=== PATIENT | female | born 2000 | race Caucasian/White ===

== ENCOUNTER → 2019-01-08 | Outpatient (CLI) | payer OTHER | LOC: MC.RAD 13:37 | DX: N63.23 Unspecified lump in the left breast, lower outer quadrant (principal) ==

== ENCOUNTER → 2019-01-09 | Outpatient (CLI) | payer OTHER | LOC: MC.RAD 08:27 | DX: N63.20 Unspecified lump in the left breast, unspecified quadrant (principal) ==